=== PATIENT | male | born 1995 | race American Indian/Alaskan Native ===

== ENCOUNTER 2021-10-01 05:21 | Emergency (ER) | payer SELFPAY ==
[2021-10-01 06:30] LABS: Basophils % (Auto) 0.2 % (0.0-1.8); Eosinophils % (Auto) 0.2 % (0.0-4.3); Hemoglobin 15.2 gm/dl (11.8-15.2); Lymphocytes # (Auto) 2.1 K/mm3 (1.2-5.4); Lymphocytes % (Auto) 39.2 % (13.4-35.0); Mean Corpuscular HGB Conc 32 % (32-34); Mean Corpuscular Volume 86 fl (84-94); Monocytes # (Auto) 0.5 K/mm3 (0.0-0.8); Monocytes % (Auto) 10.1 % (0.0-7.3); Platelet Count 341 K/mm3 (140-440); Red Blood Count 5.49 M/mm3 (3.65-5.03); Red Cell Distribution Width 17.6 % (13.2-15.2)
[2021-10-01 06:44] LABS: BUN/Creatinine Ratio 9; Blood Urea Nitrogen 7 mg/dL (9-20); Hemolysis Index 5
[2021-10-01] MEDS ORDERED: ACETAMINOPHEN 500 MG TAB PO ONE (10:24)
[2021-10-01] MEDS ORDERED: SERTRALINE 50 MG TAB PO ONE (10:24)
--- NOTE | 2021-10-01 10:24 | Emergency Department Report ---
ED General Adult HPI - General Chief complaint: Upper Respiratory Infection Stated complaint: coughed up red Time Seen by Provider: 10/01/21 10:11 Source: patient, RN notes reviewed Mode of arrival: Ambulatory Limitations: No Limitations - History of Present Illness Initial comments: The patient was evaluated in the emergency department for symptoms described in the history of present illness. He/she was evaluated in the context of the global COVID-19 pandemic, which necessitated consideration that the patient might be at risk for infection with the virus that causes COVID-19. Institutional protocols and algorithms that pertain to the evaluation of patients at risk for COVID-19 are in a state of rapid change based on information released by regulatory bodies including the CDC and federal and state organizations. These policies and algorithms were followed during the patient's care in the emergency department. Please note that these policies, procedures and recommendations changed on a rapid basis. This patient is a pleasant and cooperative 25-year-old gentleman, who is a longtime smoker, presenting to the department today with a complaint of right lateral thoracic discomfort, coughing up red and dark. He has no hematemesis or bright red blood per rectum. His symptoms are now resolved. He denies travel, surgery, immobilization, DVT/PE risk factors. He is requesting his daily Zoloft which she gets at 9:00 in the morning, 50 mg. He denies urinary symptoms. -: hour(s) Location: right (Right lateral thorax) Radiation: non-radiation Consistency: now resolved Improves with: none Worsens with: none Associated Symptoms: denies other symptoms - Related Data Previous Rx's Medication Instructions Recorded Last Taken Type Albuterol Sulfate [Proair 90 mcg IH Q4HR PRN #2 aer.pow.ba 10/01/21 Unknown Rx Respiclick] Nicotine Polacrilex [Nicotine Gum] 4 mg BC PRN #1 pack 10/01/21 Unknown Rx Allergies Allergy/AdvReac Type Severity Reaction Status Date / Time bagel Allergy Hives Uncoded 10/01/21 05:31 ED Review of Systems ROS: Stated complaint: VOMITTING BLOOD Other details as noted in HPI Comment: All other systems reviewed and negative Respiratory: cough, other (Questionably coughing up blood) Gastrointestinal: denies: hematemesis, melena, hematochezia Genitourinary: denies: dysuria Musculoskeletal: back pain Psychiatric: anxiety ED Past Medical Hx - Past Medical History Previous Medical History?: Yes Hx Psychiatric Treatment: Yes (depression) - Surgical History Past Surgical History?: No - Social History Smoking Status: Current Every Day Smoker Substance Use Type: Alcohol - Medications Home Medications: Home Medications Medication Instructions Recorded Confirmed Last Taken Type Albuterol Sulfate [Proair 90 mcg IH Q4HR PRN #2 aer.pow.ba 10/01/21 Unknown Rx Respiclick] Nicotine Polacrilex [Nicotine Gum] 4 mg BC PRN #1 pack 10/01/21 Unknown Rx ED Physical Exam - General Limitations: No Limitations General appearance: alert, in no apparent distress - Head Head exam: Present: atraumatic, normocephalic - Eye Eye exam: Present: normal appearance, EOMI. Absent: nystagmus - ENT ENT exam: Present: normal exam, normal orophraynx, mucous membranes moist, normal external ear exam - Neck Neck exam: Present: normal inspection, full ROM. Absent: tenderness, meningismus - Respiratory Respiratory exam: Present: normal lung sounds bilaterally. Absent: respiratory distress, wheezes, rales, rhonchi, stridor, decreased breath sounds - Cardiovascular Cardiovascular Exam: Present: regular rate, normal rhythm, normal heart sounds. Absent: bradycardia, tachycardia, irregular rhythm, systolic murmur, diastolic murmur, rubs, gallop - GI/Abdominal GI/Abdominal exam: Present: soft. Absent: distended, tenderness, guarding, rebound, rigid, pulsatile mass - Rectal Rectal exam: Present: deferred - Extremities Exam Extremities exam: Present: normal inspection, full ROM, other (2+ pulses noted in the bilateral upper and lower extremities. There is no palpable cord. negative Homans sign. Muscular compartments are soft. The pelvis is stable.). Absent: pedal edema, calf tenderness - Back Exam Back exam: Present: normal inspection. Absent: tenderness, CVA tenderness (R), CVA tenderness (L), paraspinal tenderness, vertebral tenderness - Neurological Exam Neurological exam: Present: alert, oriented X3, normal gait, other (No facial droop. Tongue midline. Extraocular movements intact bilaterally. Facial sensation intact to light touch in V1, V2, V3 distribution bilaterally. 5 and a 5 strength in 4 extremities. Sensation intact to light touch in 4 extremities.). Absent: motor sensory deficit - Psychiatric Psychiatric exam: Present: normal affect, normal mood - Skin Skin exam: Present: warm, dry, intact, normal color. Absent: rash ED Course Vital Signs 10/01/21 10/01/21 05:28 11:03 Temperature 98.6 F Pulse Rate 84 74 Respiratory 18 16 Rate Blood Pressure 151/110 137/94 [Left] O2 Sat by Pulse 96 96 Oximetry - Pulse Oximetry Interpretation Digit-Finger Initial Pulse Oximetry Readin O2 Sat by Pulse Oximetry: 99 Actions Taken: none ED Medical Decision Making - Lab Data Result diagrams: 10/01/21 06:07 10/01/21 06:07 Vital Signs 10/01/21 10/01/21 05:28 11:03 Temperature 98.6 F Pulse Rate 84 74 Respiratory 18 16 Rate Blood Pressure 151/110 137/94 [Left] O2 Sat by Pulse 96 96 Oximetry Lab Results 10/01/21 10/01/21 Range/Units 06:07 06:07 WBC 5.2 (4.5-11.0) K/mm3 RBC 5.49 H (3.65-5.03) M/mm3 Hgb 15.2 (11.8-15.2) gm/dl Hct 47.0 H (35.5-45.6) % MCV 86 (84-94) fl MCH 28 (28-32) pg MCHC 32 (32-34) % RDW 17.6 H (13.2-15.2) % Plt Count 341 (140-440) K/mm3 Lymph % (Auto) 39.2 H (13.4-35.0) % [place] % (Auto) 10.1 H (0.0-7.3) % Eos % (Auto) 0.2 (0.0-4.3) % Baso % (Auto) 0.2 (0.0-1.8) % Lymph # (Auto) 2.1 (1.2-5.4) K/mm3 [place] # (Auto) 0.5 (0.0-0.8) K/mm3 Eos # (Auto) 0.0 (0.0-0.4) K/mm3 Baso # (Auto) 0.0 (0.0-0.1) K/mm3 Seg Neutrophils % 50.3 (40.0-70.0) % Seg Neutrophils # 2.6 (1.8-7.7) K/mm3 Sodium 140 (137-145) mmol/L Potassium 3.5 L (3.6-5.0) mmol/L Chloride 101.4 (98-107) mmol/L Carbon Dioxide 25 (22-30) mmol/L Anion Gap 17 mmol/L BUN 7 L (9-20) mg/dL Creatinine 0.8 (0.8-1.3) mg/dL Estimated GFR > 60 ml/min BUN/Creatinine Ratio 9 % Glucose 86 (75-100) mg/dL Calcium 9.0 (8.4-10.2) mg/dL - Medical Decision Making Differential diagnosis, including but not limited to: Pneumonia, bronchitis, bronchiectasis, pneumonitis, encounter for tobacco cessation Assessment and plan: 25-year-old gentleman, who is afebrile, with reassuring vital signs, who is not currently tachycardic, tachypneic or hypoxic, who denies DVT and pulmonary embolism risk factors, who is low risk by Wells criteria for pulmonary embolism, who is PERC negative, presents to the department today with a complaint of possibly coughing up red or blood. His physical examination is benign or unremarkable. His chest x-ray is benign and unremarkable. Laboratory studies are unremarkable and nonactionable. Saturating at 99% on room air. Counseled to discontinue tobacco consumption. Observed in this department for hours without clinical decompensation. He does not appear to have an emergent medical condition present at this time. He may be discharged. Critical care attestation.: If time is entered above; I have spent that time in minutes in the direct care of this critically ill patient, excluding procedure time. ED Disposition Clinical Impression: Bronchitis, Encounter for tobacco use cessation counseling Disposition: 01 HOME / SELF CARE / HOMELESS Is pt being admited?: No Does the pt Need Aspirin: No Condition: Good Instructions: Chronic Bronchitis (ED), Steps to Quit Smoking Additional Instructions: We recommend that the patient discontinue tobacco consumption. Discontinuation of tobacco consumption will decrease risk for cancer, heart attack, and stroke. Patient may take [id number] Tylenol or ibuprofen as needed for physical pain. May take [id number] allergy medicine, such as Claritin or Zyrtec, if experiencing nasal congestion, stuffiness, itchiness, or symptomatic seasonal allergies. May take the prescribed albuterol as needed for cough, wheezing and shortness of breath. Patient may take the nicotine gum/supplement as needed to assist with tobacco cessation. Recommend follow-up with a primary care doctor within the next 6 weeks. Please return to the emergency room right away with new pain, worsened pain, migration of pain, projectile vomiting, change in mental status, confusion, inability tolerate liquid feeds, new, worsened or different symptoms not present on the initial emergency room evaluation Referrals: [facility] [Provider Group] - as needed Forms: Accompanied Note
[2021-10-01 11:03] VITALS: BP 137/94
--- NOTE | 2021-10-01 11:05 | XRay Report ---
CHEST 2 VIEWS INDICATION / CLINICAL INFORMATION: right sided thorax pain, hemoptysis. COMPARISON: None available. FINDINGS: SUPPORT DEVICES: None. HEART / MEDIASTINUM: No significant abnormality. LUNGS / PLEURA: No significant pulmonary or pleural abnormality. No pneumothorax. ADDITIONAL FINDINGS: No significant additional findings. IMPRESSION: 1. No acute findings. Signer Name: Kenn Smith DO Signed: 10/01/2021 11:01 AM Workstation Name: [id number]
== END 2021-10-01 11:40 | disposition home or self-care (01) ==
LOC: ED 05:21
DX: J20.9 Acute bronchitis, unspecified (principal); Z71.6 Tobacco abuse counseling; F17.200 Nicotine dependence, unspecified, uncomplicated
CPT/HCPCS: 36415; 71046; 80048; 85025; 99283

== ENCOUNTER 2021-10-19 23:04 | Inpatient (IN) | payer SELFPAY ==
[2021-10-19] MEDS ORDERED: SODIUM CHLORIDE 0.9% 1000 ML 1,000 ML IV ONE ×2 (23:24→23:36)
[2021-10-19] MEDS ORDERED: fentaNYL 100 MCG/2 ML INJ IV ONE (23:24)
[2021-10-19] MEDS ORDERED: TETANUS,DIPHTHERIA TOXOID ADULT 0.5 ML INJ IM ONE (23:27)
[2021-10-19] MEDS ORDERED: TETRACAINE 0.5% OPHTH SOLN 4ML OU PRN (23:27)
[2021-10-19] MEDS ORDERED: charcoal activated SOLUTION 25 GM/120 ML PO ONE (23:34)
--- NOTE | 2021-10-19 23:43 | Emergency Department Report ---
<ROSANGELA SHERMAN - Last Filed: 10/19/21 23:37> ED General Adult HPI - General Stated complaint: POSS OD TYLENOL PUI?: No Time Seen by Provider: 10/19/21 23:29 Source: patient, EMS - History of Present Illness Initial comments: THIS IS A PLEASANTLY INTOXICATED 26 YEAR OLD MALE BROUGHT IN BY EMS WITH CONCERNS OF POSSIBLE TYLENOL OVERDOSE WHICH PER EMS, HE DRANK ABOUT 12,000 MG OF TYLENOL LIQUID FORM. PATIENT ALSO STATES HE HAD ALCOHOL TONIGHT BUT WON'T LET ME WHAT HE HAD. PATIENT STATES IN THE PAST HE HAS ATTEMPTED TO SLICE HIS WRIST AND TODAY THAT HE DRANK ALCOHOL IS FOR SUICIDAL ATTEMPT. AT THE TIME OF MY EVALUATION, PATIENT IS UP AND WALKING AROUND IN [facility] AND DENIES ANY DISCOMFORT. DENIES HOMICIDAL IDEATION. DENIES HALLUCINATION. Patient denies fever chill night sweat dizziness blurred vision lightheadedness headache tinnitus ear pain runny nose sore throat loss of taste loss of smell chest pain palpitation short of breath cough abdominal pain nausea vomiting diarrhea constipation joint pain muscle pain new rash heat or cold intolerance - Related Data Previous Rx's Medication Instructions Recorded Last Taken Type Albuterol Sulfate [Proair 90 mcg IH Q4HR PRN #2 aer.pow.ba 10/01/21 Unknown Rx Respiclick] Nicotine Polacrilex [Nicotine Gum] 4 mg BC PRN #1 pack 10/01/21 Unknown Rx Allergies Allergy/AdvReac Type Severity Reaction Status Date / Time bagel Allergy Hives Uncoded 10/01/21 05:31 ED Review of Systems Constitutional: no symptoms reported Eyes: as per HPI ENT: as per HPI Respiratory: no symptoms reported Cardiovascular: as per HPI Endocrine: no symptoms reported Gastrointestinal: as per HPI Genitourinary: as per HPI Musculoskeletal: as per HPI Skin: as per HPI Neurological: as per HPI Psychiatric: suicidal thoughts (AND ATTEMPT TO DRINK TYLENOL). denies: anxiety, depression, auditory hallucinations, visual hallucinations, homicidal thoughts Hematological/Lymphatic: as per HPI ED Past Medical Hx - Past Medical History Hx Psychiatric Treatment: Yes (depression) - Social History Smoking Status: Current Every Day Smoker Substance Use Type: Alcohol - Medications Home Medications: Home Medications Medication Instructions Recorded Confirmed Last Taken Type Albuterol Sulfate [Proair 90 mcg IH Q4HR PRN #2 aer.pow.ba 10/01/21 Unknown Rx Respiclick] Nicotine Polacrilex [Nicotine Gum] 4 mg BC PRN #1 pack 10/01/21 Unknown Rx ED Physical Exam - General General appearance: alert, other (PLEASANTLY INTOXICATED) - Head Head exam: Present: atraumatic, normocephalic, normal inspection - Eye Eye exam: Present: normal appearance, PERRL, EOMI Pupils: Present: normal accommodation - ENT ENT exam: Present: normal exam, normal orophraynx, mucous membranes moist - Neck Neck exam: Present: normal inspection, full ROM - Respiratory Respiratory exam: Present: normal lung sounds bilaterally - Cardiovascular Cardiovascular Exam: Present: regular rate, normal rhythm - GI/Abdominal GI/Abdominal exam: Present: soft - Extremities Exam Extremities exam: Present: normal inspection - Back Exam Back exam: Present: normal inspection, full ROM - Neurological Exam Neurological exam: Present: alert, altered, oriented X3 (PLEASANTLY INTOXICATED AND JOKING AROUND ABOUT KILING HIMSELF.) - Psychiatric Psychiatric exam: Present: suicidal ideation. Absent: homicidal ideation ED Course - Reevaluation(s) Reevaluation #1: 10/19/21 23:44 I WILL SIGN OUT MY PATIENT CARE TO MY COLLEAGUE, DR. GALLARDO WHO WILL FOLLOW UP ON THE ACETAMINOPHEN LEVEL, ETC. ED Disposition Clinical Impression: Overdose, Suicide attempt, Tylenol overdose Disposition: ADMITTED INPATIENT Condition: Stable <ROSA GALLARDO - Last Filed: 10/20/21 06:15> ED Medical Decision Making - Lab Data Result diagrams: 10/19/21 23:54 10/19/21 23:54 ED Disposition Is pt being admited?: Yes Does the pt Need Aspirin: No <CINTHYA PANTOJA - Last Filed: 10/20/21 14:23> ED Review of Systems ROS: Stated complaint: POSS OD TYLENOL Other details as noted in HPI ED Course Vital Signs 10/19/21 10/19/21 10/19/21 23:39 23:50 23:58 Pulse Rate 96 H Respiratory 18 Rate Blood Pressure 137/98 Blood Pressure [Left] O2 Sat by Pulse 98 98 100 Oximetry 10/20/21 10/20/21 10/20/21 00:01 00:15 00:31 Pulse Rate 76 81 Respiratory 16 18 Rate Blood Pressure 139/97 122/88 120/84 Blood Pressure [Left] O2 Sat by Pulse 96 97 96 Oximetry 10/20/21 10/20/21 10/20/21 00:45 01:01 01:15 Pulse Rate 97 H 70 74 Respiratory 16 18 15 Rate Blood Pressure 119/78 127/87 127/87 Blood Pressure [Left] O2 Sat by Pulse 97 96 97 Oximetry 10/20/21 10/20/21 10/20/21 01:31 01:45 02:01 Pulse Rate 73 77 86 Respiratory 17 18 19 Rate Blood Pressure 127/87 127/87 108/58 Blood Pressure [Left] O2 Sat by Pulse 96 96 96 Oximetry 10/20/21 10/20/21 10/20/21 02:15 02:31 02:45 Pulse Rate 85 86 89 Respiratory 17 19 19 Rate Blood Pressure 108/58 108/58 108/58 Blood Pressure [Left] O2 Sat by Pulse 96 95 95 Oximetry 10/20/21 10/20/21 10/20/21 03:01 03:15 03:31 Pulse Rate 79 78 75 Respiratory 17 18 17 Rate Blood Pressure 101/58 101/58 101/58 Blood Pressure [Left] O2 Sat by Pulse 96 96 96 Oximetry 10/20/21 10/20/21 10/20/21 03:45 04:01 04:15 Pulse Rate 73 73 66 Respiratory 17 18 13 Rate Blood Pressure 101/58 97/60 97/60 Blood Pressure [Left] O2 Sat by Pulse 96 96 97 Oximetry 10/20/21 10/20/21 10/20/21 04:31 04:45 05:01 Pulse Rate 65 75 62 Respiratory 13 13 17 Rate Blood Pressure 97/60 141/91 Blood Pressure [Left] O2 Sat by Pulse 98 98 99 Oximetry 10/20/21 10/20/21 10/20/21 05:15 05:31 05:45 Pulse Rate 65 63 63 Respiratory 16 21 23 Rate Blood Pressure 141/91 141/91 141/91 Blood Pressure [Left] O2 Sat by Pulse 99 99 99 Oximetry 10/20/21 10/20/21 10/20/21 06:01 06:15 06:31 Pulse Rate 68 67 91 H Respiratory 20 15 17 Rate Blood Pressure 120/91 120/91 120/91 Blood Pressure [Left] O2 Sat by Pulse 98 99 98 Oximetry 10/20/21 10/20/21 10/20/21 06:45 07:01 07:15 Pulse Rate 131 H 110 H 100 H Respiratory 29 H 17 16 Rate Blood Pressure 120/91 156/127 156/127 Blood Pressure [Left] O2 Sat by Pulse 99 98 98 Oximetry 10/20/21 10/20/21 10/20/21 07:31 08:00 08:15 Pulse Rate 102 H 75 84 Respiratory 15 17 12 Rate Blood Pressure 156/127 156/127 Blood Pressure 132/97 [Left] O2 Sat by Pulse 96 99 Oximetry 10/20/21 10/20/21 10/20/21 08:31 08:45 09:01 Pulse Rate 98 H 77 71 Respiratory 17 22 26 H Rate Blood Pressure 156/127 147/115 132/97 Blood Pressure [Left] O2 Sat by Pulse 96 97 98 Oximetry 10/20/21 10/20/21 10/20/21 09:15 09:22 09:31 Pulse Rate 74 68 78 Respiratory 22 17 20 Rate Blood Pressure 132/97 136/95 Blood Pressure 147/115 [Left] O2 Sat by Pulse 98 99 96 Oximetry 10/20/21 10/20/21 10/20/21 09:45 10:01 10:15 Pulse Rate 75 72 72 Respiratory 20 22 18 Rate Blood Pressure 136/95 136/95 136/95 Blood Pressure [Left] O2 Sat by Pulse 99 97 98 Oximetry 10/20/21 10/20/21 10/20/21 10:31 11:01 11:45 Pulse Rate 75 73 80 Respiratory 19 15 18 Rate Blood Pressure 134/93 135/98 135/98 Blood Pressure [Left] O2 Sat by Pulse 96 100 96 Oximetry 10/20/21 12:01 Pulse Rate 81 Respiratory 22 Rate Blood Pressure 134/95 Blood Pressure [Left] O2 Sat by Pulse 97 Oximetry ED Medical Decision Making - Lab Data Result diagrams: 10/19/21 23:54 10/19/21 23:54 - Medical Decision Making Case discussed with hospitalist Dr. Myers admission orders placed Critical care attestation.: If time is entered above; I have spent that time in minutes in the direct care of this critically ill patient, excluding procedure time. ED Disposition Is pt being admited?: Yes Does the pt Need Aspirin: No
[2021-10-20 00:17] LABS: Bilirubin,Urine NEG (Negative); Blood,Urine SM (Negative); Color,Urine Yellow (Yellow); Protein,Urine <15 mg/dL mg/dL (Negative)
[2021-10-20 00:22] LABS: Basophils % (Auto) 0.3 % (0.0-1.8); Eosinophils % (Auto) 0.4 % (0.0-4.3); Hematocrit 43.5 % (35.5-45.6); Hemoglobin 14.3 gm/dl (11.8-15.2); Lymphocytes # (Auto) 1.1 K/mm3 (1.2-5.4); Mean Corpuscular HGB Conc 33 % (32-34); Mean Corpuscular Volume 87 fl (84-94); Monocytes # (Auto) 0.7 K/mm3 (0.0-0.8); Monocytes % (Auto) 9.7 % (0.0-7.3); Platelet Count 290 K/mm3 (140-440); Red Blood Count 4.99 M/mm3 (3.65-5.03); Red Cell Distribution Width 17.5 % (13.2-15.2)
[2021-10-20 00:27] LABS: Amphetamine Screen,Urine PRESUMPTIVE NEGATIVE; Benzodiazepines Screen,Urine PRESUMPTIVE NEGATIVE; Cannabinoid Screen,Urine PRESUMPTIVE NEGATIVE; Cocaine Screen,Urine PRESUMPTIVE NEGATIVE; Methadone Screen,Urine PRESUMPTIVE NEGATIVE; Opiate Screen,Urine PRESUMPTIVE NEGATIVE
[2021-10-20 00:32] LABS: Alanine Aminotransferase 59 units/L (7-56); Albumin 4.3 g/dL (3.9-5); Blood Urea Nitrogen 6 mg/dL (9-20); Calcium 8.8 mg/dL (8.4-10.2); Hemolysis Index 13
[2021-10-20 00:33] LABS: INR 0.9 (0.87-1.13)
[2021-10-20 00:36] LABS: BUN/Creatinine Ratio 9
[2021-10-20] MEDS ORDERED: NICOTINE 21 MG/24 HR PATCH TD ONE (00:54)
[2021-10-20] MEDS ORDERED: ACETADOTE IV ONE ×3 (05:00→10:00)
[2021-10-20] MEDS ORDERED: WATER IV ONE ×3 (05:00→10:00)
[2021-10-20] MEDS ORDERED: DEXTROSE 5% IV ONE ×3 (05:00→10:00)
[2021-10-20] MEDS ORDERED: ONDANSETRON 4 MG/2 ML INJ IV ONE (06:54)
[2021-10-20] MEDS ORDERED: ONDANSETRON 4 MG/2 ML INJ ONE (06:54)
[2021-10-20] MEDS ORDERED: ACETAMINOPHEN 325 MG TAB PO PRN (07:39)
[2021-10-20] MEDS ORDERED: ONDANSETRON 4 MG/2 ML INJ IV PRN ×3 (07:39→11:30)
[2021-10-20] MEDS ORDERED: MORPHINE 2 MG/1 ML INJ IV PRN ×3 (07:40→12:00)
--- NOTE | 2021-10-20 10:58 | History and Physical Report ---
History of Present Illness Date of examination: 10/20/21 Date of admission: 10/20/21 07:39 Chief complaint: Tylenol overdose History of present illness: 26-year-old male who presented through the emergency department with chief complaint of possible Tylenol overdose. Per EMS, patient reportedly drank approximately 12,000 mg of Tylenol liquid form as well as alcohol last night TUFTER. Patient reportedly had a suicide attempt in the past with cutting his wrists. Patient would not deny or confirm that he had a suicide attempt. Patient would also not give me any history of any prior suicidal attempts. Patient was essentially uncooperative with the interview and had a flat affect. Patient reports that he does have a history of depression. Patient denies any fever or chills. No cough or cold-like symptoms. Past History Past Medical History: other (Depression, previous suicide attempt) Past Surgical History: No surgical history Social history: no significant social history Family history: no significant family history Medications and Allergies Allergies Allergy/AdvReac Type Severity Reaction Status Date / Time bagel Allergy Hives Uncoded 10/01/21 05:31 Home Medications Medication Instructions Recorded Confirmed Last Taken Type Albuterol Sulfate [Proair 90 mcg IH Q4HR PRN #2 aer.pow.ba 10/01/21 Unknown Rx Respiclick] Nicotine Polacrilex [Nicotine Gum] 4 mg BC PRN #1 pack 10/01/21 Unknown Rx Active Meds: Active Medications Acetylcysteine 8,000 mg/ (Dextrose) 1,040 mls @ 62.5 mls/hr IV ONCE ONE Stop: 10/21/21 02:38 Morphine Sulfate (Morphine 2 Mg/1 Ml Inj) 2 mg IV Q4H PRN PRN Reason: Pain, Moderate (4-6) Ondansetron HCl (Ondansetron 4 Mg/2 Ml Inj) 4 mg IV Q8H PRN PRN Reason: Nausea And Vomiting Sodium Chloride (Sodium Chloride 0.9% 10 Ml Flush Syringe) 10 ml IV BID SOSA Sodium Chloride (Sodium Chloride 0.9% 10 Ml Flush Syringe) 10 ml IV PRN PRN PRN Reason: LINE FLUSH Review of Systems All systems: negative Exam - Constitutional Vitals: Temp Pulse Resp BP Pulse Ox 68 17 147/115 99 10/20/21 09:22 10/20/21 09:22 10/20/21 09:22 10/20/21 09:22 General appearance: Present: no acute distress, well-nourished - EENT Eyes: Present: PERRL ENT: hearing intact, clear oral mucosa - Neck Neck: Present: supple, normal ROM - Respiratory Respiratory effort: normal Respiratory: bilateral: CTA - Cardiovascular Heart Sounds: Present: S1 & S2. Absent: rub, click - Extremities Extremities: pulses symmetrical, No edema Peripheral Pulses: within normal limits - Abdominal General gastrointestinal: Present: soft, non-tender, non-distended, normal bowel sounds Male genitourinary: Present: normal - Integumentary Integumentary: Present: clear, warm, dry - Musculoskeletal Musculoskeletal: gait normal, strength equal bilaterally - Psychiatric Psychiatric: appropriate mood/affect, intact judgment & insight - Neurologic Neurologic: CNII-XII intact, moves all extremities Results - Labs CBC & Chem 7: 10/19/21 23:54 10/19/21 23:54 Labs: Laboratory Last Values WBC 6.9 K/mm3 (4.5-11.0) 10/19/21 23:54 RBC 4.99 M/mm3 (3.65-5.03) 10/19/21 23:54 Hgb 14.3 gm/dl (11.8-15.2) 10/19/21 23:54 Hct 43.5 % (35.5-45.6) 10/19/21 23:54 MCV 87 fl (84-94) 10/19/21 23:54 MCH 29 pg (28-32) 10/19/21 23:54 MCHC 33 % (32-34) 10/19/21 23:54 RDW 17.5 % (13.2-15.2) H 10/19/21 23:54 Plt Count 290 K/mm3 (140-440) 10/19/21 23:54 Lymph % (Auto) 16.0 % (13.4-35.0) 10/19/21 23:54 [place] % (Auto) 9.7 % (0.0-7.3) H 10/19/21 23:54 Eos % (Auto) 0.4 % (0.0-4.3) 10/19/21 23:54 Baso % (Auto) 0.3 % (0.0-1.8) 10/19/21 23:54 Lymph # (Auto) 1.1 K/mm3 (1.2-5.4) L 10/19/21 23:54 [place] # (Auto) 0.7 K/mm3 (0.0-0.8) 10/19/21 23:54 Eos # (Auto) 0.0 K/mm3 (0.0-0.4) 10/19/21 23:54 Baso # (Auto) 0.0 K/mm3 (0.0-0.1) 10/19/21 23:54 Seg Neutrophils % 73.6 % (40.0-70.0) H 10/19/21 23:54 Seg Neutrophils # 5.1 K/mm3 (1.8-7.7) 10/19/21 23:54 PT 13.1 Sec. (12.2-14.9) 10/19/21 23:54 INR 0.90 (0.87-1.13) 10/19/21 23:54 APTT 26.0 Sec. (24.2-36.6) 10/19/21 23:54 Sodium 141 mmol/L (137-145) 10/19/21 23:54 Potassium 3.8 mmol/L (3.6-5.0) 10/19/21 23:54 Chloride 105.0 mmol/L (98-107) 10/19/21 23:54 Carbon Dioxide 24 mmol/L (22-30) 10/19/21 23:54 Anion Gap 16 mmol/L 10/19/21 23:54 BUN 6 mg/dL (9-20) L 10/19/21 23:54 Creatinine 0.7 mg/dL (0.8-1.3) L 10/19/21 23:54 Estimated GFR > 60 ml/min 10/19/21 23:54 BUN/Creatinine Ratio 9 % 10/19/21 23:54 Glucose 73 mg/dL (75-100) L 10/19/21 23:54 Calcium 8.8 mg/dL (8.4-10.2) 10/19/21 23:54 Magnesium 2.20 mg/dL (1.7-2.3) 10/19/21 23:54 Total Bilirubin 0.50 mg/dL (0.1-1.2) 10/19/21 23:54 AST 74 units/L (5-40) H 10/19/21 23:54 ALT 59 units/L (7-56) H 10/19/21 23:54 Alkaline Phosphatase 115 units/L (35-129) 10/19/21 23:54 Total Protein 7.8 g/dL (6.3-8.2) 10/19/21 23:54 Albumin 4.3 g/dL (3.9-5) 10/19/21 23:54 Albumin/Globulin Ratio 1.2 % 10/19/21 23:54 Urine Color Yellow (Yellow) 10/20/21 00:07 Urine Turbidity Clear (Clear) 10/20/21 00:07 Urine pH 7.0 (5.0-7.0) 10/20/21 00:07 Ur Specific [place] 1.004 (1.003-1.030) 10/20/21 00:07 Urine Protein <15 mg/dl mg/dL (Negative) 10/20/21 00:07 Urine Glucose (UA) Neg mg/dL (Negative) 10/20/21 00:07 Urine Ketones Neg mg/dL (Negative) 10/20/21 00:07 Urine Blood Sm (Negative) 10/20/21 00:07 Urine Nitrite Neg (Negative) 10/20/21 00:07 Urine Bilirubin Neg (Negative) 10/20/21 00:07 Urine Urobilinogen 2.0 mg/dL (<2.0) 10/20/21 00:07 Ur Leukocyte Esterase Neg (Negative) 10/20/21 00:07 Urine WBC (Auto) 6.0 /HPF (0.0-6.0) 10/20/21 00:07 Urine RBC (Auto) 1.0 /HPF (0.0-6.0) 10/20/21 00:07 Salicylates < 0.3 mg/dL (2.8-20.0) L 10/19/21 23:54 Urine Opiates Screen Presumptive negative 10/19/21 23:58 Urine Methadone Screen Presumptive negative 10/19/21 23:58 Acetaminophen 11.1 ug/mL (10.0-30.0) 10/20/21 04:26 Ur Barbiturates Screen Presumptive negative 10/19/21 23:58 Ur Phencyclidine Scrn Presumptive negative 10/19/21 23:58 Ur Amphetamines Screen Presumptive negative 10/19/21 23:58 U Benzodiazepines Scrn Presumptive negative 10/19/21 23:58 Urine Cocaine Screen Presumptive negative 10/19/21 23:58 U Marijuana (THC) Screen Presumptive negative 10/19/21 23:58 Drugs of Abuse Note Disclamer 10/19/21 23:58 Assessment and Plan Assessment and plan: Tylenol overdose Suicide attempt. Major depressive disorder. 10/20/2021. Patient was started on Acetadote in the emergency department which we will continue per protocol and per GI/poison control recommendations. We will continue to monitor LFTs. Initial acetaminophen level was 36 and is now 11.1. We will consult GI for further evaluation. Also, await psychiatric evaluation. Continue 1013 initiated in the ED.
[2021-10-20] MEDS ORDERED: IBUPROFEN 600 MG TAB PO PRN ×2 (11:09→11:30)
[2021-10-20] MEDS ORDERED: MORPHINE 4 MG/1 ML INJ IV PRN (11:09)
--- NOTE | 2021-10-20 11:19 | Consultation ---
History of Present Illness - Reason for Consult Consult date: 10/20/21 Reason for consult: intentional overdose - Chief Complaint Chief complaint: Tylenol overdose - History of Present Psychiatric Illness HPI: THIS IS A PLEASANTLY INTOXICATED 26 YEAR OLD MALE BROUGHT IN BY EMS WITH CONCERNS OF POSSIBLE TYLENOL OVERDOSE WHICH PER EMS, HE DRANK ABOUT 12,000 MG OF TYLENOL LIQUID FORM. PATIENT ALSO STATES HE HAD ALCOHOL TONIGHT BUT WON'T LET ME WHAT HE HAD. PATIENT STATES IN THE PAST HE HAS ATTEMPTED TO SLICE HIS WRIST AND TODAY THAT HE DRANK ALCOHOL IS FOR SUICIDAL ATTEMPT. AT THE TIME OF MY EVALUATION, PATIENT IS UP AND WALKING AROUND IN ER [facility] AND DENIES ANY DISCOMFORT. DENIES HOMICIDAL IDEATION. DENIES HALLUCINATION. The patient was seen today. He presented to the ER by EMS for tylenol overdose. During my evaluation, the patient says he he took "18 tylenol." He says he's been depressed. When asking him what makes him depressed, the patient says "I don't know." He then says he has no social support and not really close with his family. He says he "drinks a lot." The patient says he drinks maybe a case of beer a day. He denies any illicit drug use or nicotine. When asking about any h allucinations, the patient says "I don't know if I'm dreaming or what's real. It's just random stuff I can't explain." He denies to me ever attempting suicide outside of this, but documented that upon admission he stated he attempted to slice his wrist. He says he takes Zoloft for depression. PAST PSYCHIATRIC HISTORY Diagnoses: Depression Suicide attempts or Self-harm behavior: Denies, but documented he attempted to slice his wrist Prior psychiatric hospitalizations: Yes Substance Abuse history: Alcohol Previous psychiatric medications tried: Zoloft Outpatient treatment: Yes PAST MEDICAL HISTORY: none reported Family Psychiatric History: None reported or documented SOCIAL HISTORY Marital Status: Single Living Arrangements: Lives with family Employment Status: Unemployed Access to guns/weapons: Denies Education: History of Abuse: none reported Legal History: none reported REVIEW OF SYSTEMS Constitutional: Negative for weight loss ENT: Negative for stridor Respiratory: Negative for cough or hemoptysis All other systems reviewed and are negative MENTAL STATUS EXAMINATION General Appearance and Behavior: Age appropriate, good hygiene, wearing appropriate clothes, fair eye contact, cooperative polite with questioning. Cooperation: Participating/engaged, guarded Psychomotor Behavior: unremarkable and within normal limits Mood: Depressed Affect and affective range: congruent with mood Thought Process: Goal directed Thought Content: delusions Speech: Normal volume, Regular rate and rhythm, Suicidal Ideation: Yes Homicidal Ideation: Denies Hallucinations: Denies Delusions: yes Impulse Control: Poor Insight and Judgment: Limited insight and judgment, Memory: Normal, Attention: Normal, Orientation: Alert, oriented, Assessment and Plan (1) Major Depressive Disorder (2) Alcohol Dependence Treatment 1013 Zoloft 25mg po daily Abilify 5mg po daily Melatonin 5mg po qhs prn insomnia Sitter: Per primary Medical: Per primary Disposition: recommend acute inpatient psychiatric treatment. Will follow. Thanks Case staffed with Dr. Rangel Medications and Allergies Allergies Allergy/AdvReac Type Severity Reaction Status Date / Time bagel Allergy Hives Uncoded 10/01/21 05:31 Home Medications Medication Instructions Recorded Confirmed Last Taken Type Albuterol Sulfate [Proair 90 mcg IH Q4HR PRN #2 [email or web address] 10/01/21 Unknown Rx Respiclick] Nicotine Polacrilex [Nicotine Gum] 4 mg BC PRN #1 pack 10/01/21 Unknown Rx Active Meds: Active Medications Heparin Sodium (Porcine) (Heparin 5,000 Unit/1 Ml Vial) 5,000 unit SUB-Q Q8HR SOSA Acetylcysteine 8,000 mg/ (Dextrose) 1,040 mls @ 62.5 mls/hr IV ONCE ONE Stop: 10/21/21 02:38 Ibuprofen (Ibuprofen 600 Mg Tab) 600 mg PO Q6H PRN PRN Reason: Pain, Mild (1-3) Morphine Sulfate (Morphine 2 Mg/1 Ml Inj) 1 mg IV Q4H PRN PRN Reason: Pain, Moderate (4-6) Morphine Sulfate (Morphine 2 Mg/1 Ml Inj) 2 mg IV Q4H PRN PRN Reason: Pain , Severe (7-10) Ondansetron HCl (Ondansetron 4 Mg/2 Ml Inj) 4 mg IV Q8H PRN PRN Reason: Nausea And Vomiting Sodium Chloride (Sodium Chloride 0.9% 10 Ml Flush Syringe) 10 ml IV BID SOSA Sodium Chloride (Sodium Chloride 0.9% 10 Ml Flush Syringe) 10 ml IV PRN PRN PRN Reason: LINE FLUSH Mental Status Exam - Vital signs Last Vital Signs Temp Pulse 68 10/20/21 09:22 Resp 17 10/20/21 09:22 BP 147/115 10/20/21 09:22 Pulse Ox 99 10/20/21 09:22 Results Result Diagrams: 10/19/21 23:54 10/19/21 23:54 Abnormal lab results 10/19/21 10/19/21 10/19/21 Range/Units 23:54 23:54 23:54 RDW 17.5 H (13.2-15.2) % Blair % (Auto) 9.7 H (0.0-7.3) % Lymph # (Auto) 1.1 L (1.2-5.4) K/mm3 Seg Neutrophils % 73.6 H (40.0-70.0) % BUN 6 L (9-20) mg/dL Creatinine 0.7 L (0.8-1.3) mg/dL Glucose 73 L (75-100) mg/dL AST 74 H (5-40) units/L ALT 59 H (7-56) units/L Salicylates < 0.3 L (2.8-20.0) mg/dL Acetaminophen (10.0-30.0) ug/mL 10/19/21 Range/Units 23:54 RDW (13.2-15.2) % Blair % (Auto) (0.0-7.3) % Lymph # (Auto) (1.2-5.4) K/mm3 Seg Neutrophils % (40.0-70.0) % BUN (9-20) mg/dL Creatinine (0.8-1.3) mg/dL Glucose (75-100) mg/dL AST (5-40) units/L ALT (7-56) units/L Salicylates (2.8-20.0) mg/dL Acetaminophen 36.0 H (10.0-30.0) ug/mL All other labs normal.
[2021-10-20] MEDS: SERTRALINE 25 MG TAB PO SCH (13:00)
[2021-10-20] MEDS: ARIPiprazole 5 MG TAB PO SCH (13:00)
[2021-10-20] MEDS: HEPARIN 5,000 UNIT/1 ML VIAL SUB-Q SCH (19:11)
--- NOTE | 2021-10-20 19:54 | Consultation ---
DATE OF CONSULTATION: 10/20/2021 INDICATION: Increased liver function test. HISTORY: The patient is a 26-year-old white male who has been seen for increased liver function test. The patient reportedly takes approximately 79911 mg of Tylenol liquid form for possible suicide attempt. The patient denies history of liver disease prior. Denies a known history of increased liver function test. The patient denies risk factors for chronic liver disease including IV drug abuse, blood transfusions or family history of liver disease. GI is consulted to aid in management given possible Tylenol overdose. No other specific complaints. PAST MEDICAL HISTORY: Depression. MEDICATIONS: Reviewed and updated in chart. ALLERGIES: No known drug allergies. SOCIAL HISTORY: Social alcohol. Denies IV drug abuse. FAMILY HISTORY: Negative for colon cancer, IBD or liver disease REVIEW OF SYSTEMS: GENERAL: Reports some weakness. HEENT: No visual complaints or tinnitus. PULMONARY: Reports some shortness of breath, has chest pain. GASTROINTESTINAL: No complaints. All points of 13-point review of system otherwise negative. PHYSICAL EXAMINATION: VITAL SIGNS: Temperature of 98.7, pulse 77, respirations 20, blood pressure 129/90. GENERAL: Fairly nourished with no acute distress. HEENT: Pupils equal, round and reactive. PULMONARY: Clear to auscultation bilaterally. CARDIOVASCULAR: Regular rate and rhythm. Normal S1, S2. ABDOMEN: Positive bowel sounds, soft. SKIN: No obvious rashes. LABORATORY DATA: Pertinent for white count of 6.9, hemoglobin and hematocrit 14.3 and 43.5, platelet count of 290. Coags within normal limits. Chem-7 within normal limits. AST and ALT of 74 and 59. ASSESSMENT: A 26-year-old male presents with increased liver function test after ingestion of large amount of acetaminophen in what is a possible apparent suicide attempt. The patient reports now that he is doing well. He denies a known history of liver disease. His liver tests are only mildly elevated and no labs suggestive of impending liver failure. Management is noted below. PLAN: 1. Continue per protocol. 2. Follow LFTs. 3. Basic liver workup including acute hepatitis panel. 4. Consider liver ultrasound based on progress. 5. Avoid hepatotoxic drugs. 6. Suicidal or homicidal ideation per Primary Team and Psychiatry. 7. We will follow with further recommendation based on progress. TID: [id number] RECEIPT: [id number] IVETH/DERICK/DENIA/SHERYL
[2021-10-20] MEDS ORDERED: MELATONIN 5 MG TAB PO PRN (22:00)
[2021-10-21 00:35] LABS: Albumin 3.9 g/dL (3.9-5); Bilirubin,Direct 0.4 mg/dL (0-0.2)
[2021-10-21] MEDS: HEPARIN 5,000 UNIT/1 ML VIAL SUB-Q SCH ×4 (00:48→23:16)
[2021-10-21 04:19] LABS: Basophils # (Auto) 0.1 K/mm3 (0.0-0.1); Basophils % (Auto) 2.8 % (0.0-1.8); Eosinophils % (Auto) 0.8 % (0.0-4.3); Hematocrit 41.3 % (35.5-45.6); Hemoglobin 13.2 gm/dl (11.8-15.2); Lymphocytes # (Auto) 0.5 K/mm3 (1.2-5.4); Mean Corpuscular HGB Conc 32 % (32-34); Mean Corpuscular Volume 88 fl (84-94); Monocytes # (Auto) 0.4 K/mm3 (0.0-0.8); Monocytes % (Auto) 9.6 % (0.0-7.3); Platelet Count 199 K/mm3 (140-440); Red Blood Count 4.69 M/mm3 (3.65-5.03); Red Cell Distribution Width 17.1 % (13.2-15.2)
[2021-10-21 04:32] LABS: Alanine Aminotransferase 40 units/L (7-56); Albumin 3.9 g/dL (3.9-5); Bilirubin,Direct 0.4 mg/dL (0-0.2); Blood Urea Nitrogen 2 mg/dL (9-20); Calcium 9.3 mg/dL (8.4-10.2); Hemolysis Index 7
[2021-10-21 04:38] LABS: INR 1.03 (0.87-1.13)
[2021-10-21 04:41] LABS: BUN/Creatinine Ratio 3
[2021-10-21] MEDS ORDERED: DEXTROSE 5% IV SCH (05:00)
[2021-10-21] MEDS ORDERED: ACETADOTE IV SCH (05:00)
[2021-10-21] MEDS ORDERED: WATER IV SCH (05:00)
[2021-10-21] MEDS: ARIPiprazole 5 MG TAB PO SCH (09:05)
[2021-10-21] MEDS: SERTRALINE 25 MG TAB PO SCH (09:06)
--- NOTE | 2021-10-21 10:51 | Progress Note ---
Assessment and Plan Assessment and plan: Tylenol overdose Suicide attempt. Major depressive disorder. 10/20/2021. Patient was started on Acetadote in the emergency department which we will continue per protocol and per GI/poison control recommendations. We will continue to monitor LFTs. Initial acetaminophen level was 36 and is now 11.1. We will consult GI for further evaluation. Also, await psychiatric evaluation. Continue 1013 initiated in the ED. 10/21/2021. Continue Acetadote per poison control recommendations. LFTs are within normal limits. Acetaminophen level also within normal limits. GI consulted. Continue 1013 per psychiatry. History Interval history: No new issues overnight Hospitalist Physical - Constitutional Vitals: Temp Pulse Resp BP Pulse Ox 98.4 F 65 16 138/98 98 10/21/21 01:04 10/21/21 01:04 10/21/21 01:30 10/21/21 01:04 10/21/21 09:10 General appearance: Present: no acute distress, well-nourished - EENT Eyes: Present: PERRL, EOM intact ENT: hearing intact, clear oral mucosa, dentition normal - Neck Neck: Present: supple, normal ROM - Respiratory Respiratory effort: normal Respiratory: bilateral: CTA - Cardiovascular Rhythm: regular Heart Sounds: Present: S1 & S2. Absent: gallop, rub - Extremities Extremities: no ischemia, No edema, Full ROM - Abdominal General gastrointestinal: soft, non-tender, non-distended, normal bowel sounds - Integumentary Integumentary: Present: clear, warm, dry - Neurologic Neurologic: CNII-XII intact, moves all extremities Results - Labs CBC & Chem 7: 10/21/21 04:10 10/21/21 04:10 Labs: Laboratory Last Values WBC 4.3 K/mm3 (4.5-11.0) L 10/21/21 04:10 RBC 4.69 M/mm3 (3.65-5.03) 10/21/21 04:10 Hgb 13.2 gm/dl (11.8-15.2) 10/21/21 04:10 Hct 41.3 % (35.5-45.6) 10/21/21 04:10 MCV 88 fl (84-94) 10/21/21 04:10 MCH 28 pg (28-32) 10/21/21 04:10 MCHC 32 % (32-34) 10/21/21 04:10 RDW 17.1 % (13.2-15.2) H 10/21/21 04:10 Plt Count 199 K/mm3 (140-440) 10/21/21 04:10 Lymph % (Auto) 11.0 % (13.4-35.0) L 10/21/21 04:10 Brooke % (Auto) 9.6 % (0.0-7.3) H 10/21/21 04:10 Eos % (Auto) 0.8 % (0.0-4.3) 10/21/21 04:10 Baso % (Auto) 2.8 % (0.0-1.8) H 10/21/21 04:10 Lymph # (Auto) 0.5 K/mm3 (1.2-5.4) L 10/21/21 04:10 Brooke # (Auto) 0.4 K/mm3 (0.0-0.8) 10/21/21 04:10 Eos # (Auto) 0.0 K/mm3 (0.0-0.4) 10/21/21 04:10 Baso # (Auto) 0.1 K/mm3 (0.0-0.1) 10/21/21 04:10 Seg Neutrophils % 75.8 % (40.0-70.0) H 10/21/21 04:10 Seg Neutrophils # 3.3 K/mm3 (1.8-7.7) 10/21/21 04:10 PT 14.6 Sec. (12.2-14.9) 10/21/21 04:10 INR 1.03 (0.87-1.13) 10/21/21 04:10 APTT 26.0 Sec. (24.2-36.6) 10/19/21 23:54 Sodium 136 mmol/L (137-145) L 10/21/21 04:10 Potassium 4.1 mmol/L (3.6-5.0) 10/21/21 04:10 Chloride 99.4 mmol/L (98-107) 10/21/21 04:10 Carbon Dioxide 27 mmol/L (22-30) 10/21/21 04:10 Anion Gap 14 mmol/L 10/21/21 04:10 BUN 2 mg/dL (9-20) L 10/21/21 04:10 Creatinine 0.7 mg/dL (0.8-1.3) L 10/21/21 04:10 Estimated GFR > 60 ml/min 10/21/21 04:10 BUN/Creatinine Ratio 3 % 10/21/21 04:10 Glucose 93 mg/dL (75-100) 10/21/21 04:10 Calcium 9.3 mg/dL (8.4-10.2) 10/21/21 04:10 Magnesium 2.20 mg/dL (1.7-2.3) 10/19/21 23:54 Total Bilirubin 1.50 mg/dL (0.1-1.2) H 10/21/21 04:10 Total Bilirubin 1.50 mg/dL (0.1-1.2) H 10/21/21 04:10 Direct Bilirubin 0.4 mg/dL (0-0.2) H 10/21/21 04:10 Indirect Bilirubin 1.1 mg/dL 10/21/21 04:10 AST 31 units/L (5-40) 10/21/21 04:10 AST 31 units/L (5-40) 10/21/21 04:10 ALT 39 units/L (7-56) 10/21/21 04:10 ALT 40 units/L (7-56) 10/21/21 04:10 Alkaline Phosphatase 79 units/L (35-129) 10/21/21 04:10 Alkaline Phosphatase 81 units/L (35-129) 10/21/21 04:10 Total Creatine Kinase 125 units/L (55-170) 10/21/21 00:00 Total Protein 6.8 g/dL (6.3-8.2) 10/21/21 04:10 Total Protein 6.9 g/dL (6.3-8.2) 10/21/21 04:10 Albumin 3.9 g/dL (3.9-5) 10/21/21 04:10 Albumin 4.0 g/dL (3.9-5) 10/21/21 04:10 Albumin/Globulin Ratio 1.3 % 10/21/21 04:10 Albumin/Globulin Ratio 1.4 % 10/21/21 04:10 Urine Color Yellow (Yellow) 10/20/21 00:07 Urine Turbidity Clear (Clear) 10/20/21 00:07 Urine pH 7.0 (5.0-7.0) 10/20/21 00:07 Ur Specific Franklin 1.004 (1.003-1.030) 10/20/21 00:07 Urine Protein <15 mg/dl mg/dL (Negative) 10/20/21 00:07 Urine Glucose (UA) Neg mg/dL (Negative) 10/20/21 00:07 Urine Ketones Neg mg/dL (Negative) 10/20/21 00:07 Urine Blood Sm (Negative) 10/20/21 00:07 Urine Nitrite Neg (Negative) 10/20/21 00:07 Urine Bilirubin Neg (Negative) 10/20/21 00:07 Urine Urobilinogen 2.0 mg/dL (<2.0) 10/20/21 00:07 Ur Leukocyte Esterase Neg (Negative) 10/20/21 00:07 Urine WBC (Auto) 6.0 /HPF (0.0-6.0) 10/20/21 00:07 Urine RBC (Auto) 1.0 /HPF (0.0-6.0) 10/20/21 00:07 Salicylates < 0.3 mg/dL (2.8-20.0) L 10/19/21 23:54 Urine Opiates Screen Presumptive negative 10/19/21 23:58 Urine Methadone Screen Presumptive negative 10/19/21 23:58 Acetaminophen 5.0 ug/mL (10.0-30.0) L 10/21/21 04:10 Ur Barbiturates Screen Presumptive negative 10/19/21 23:58 Ur Phencyclidine Scrn Presumptive negative 10/19/21 23:58 Ur Amphetamines Screen Presumptive negative 10/19/21 23:58 U Benzodiazepines Scrn Presumptive negative 10/19/21 23:58 Urine Cocaine Screen Presumptive negative 10/19/21 23:58 U Marijuana (THC) Screen Presumptive negative 10/19/21 23:58 Drugs of Abuse Note Disclamer 10/19/21 23:58 Hector/IV: Voiding Method Toilet Active Medications - Current Medications Current Medications: Generic Name Dose Route Start Last Admin Trade Name Freq PRN Reason Stop Dose Admin Aripiprazole 5 mg 10/20/21 12:00 10/21/21 09:05 Aripiprazole 5 Mg Tab PO 5 mg QDAY SOSA Administration Heparin Sodium (Porcine) 5,000 unit 10/20/21 12:00 10/21/21 05:55 Heparin 5,000 Unit/1 Ml Vial SUB-Q 5,000 unit Q8HR SOSA Administration Acetylcysteine 8,000 mg/ 1,040 mls @ 65 mls/hr 10/21/21 05:00 10/21/21 05:47 Dextrose IV 10/21/21 20:59 65 mls/hr DIRECT SOSA Administration Ibuprofen 600 mg 10/20/21 11:30 Ibuprofen 600 Mg Tab PO Q6H PRN Pain, Mild (1-3) Melatonin 5 mg 10/20/21 22:00 Melatonin 5 Mg Tab PO QHS PRN Sleep Morphine Sulfate 1 mg 10/20/21 12:00 Morphine 2 Mg/1 Ml Inj IV Q4H PRN Pain, Moderate (4-6) Morphine Sulfate 2 mg 10/20/21 12:00 Morphine 2 Mg/1 Ml Inj IV Q4H PRN Pain , Severe (7-10) Ondansetron HCl 4 mg 10/20/21 11:30 Ondansetron 4 Mg/2 Ml Inj IV Q8H PRN Nausea And Vomiting Sertraline HCl 25 mg 10/20/21 12:00 10/21/21 09:06 Sertraline 25 Mg Tab PO 25 mg QDAY SOSA Administration Sodium Chloride 10 ml 10/20/21 12:00 10/21/21 09:06 Sodium Chloride 0.9% 10 Ml Flush Syringe IV 10 ml BID SOSA Administration Sodium Chloride 10 ml 10/20/21 12:00 Sodium Chloride 0.9% 10 Ml Flush Syringe IV PRN PRN LINE FLUSH
--- NOTE | 2021-10-21 11:54 | Progress Note ---
Subjective - Reason for Consult Consult date: 10/21/21 Reason for consult: suicidal attempt - Chief Complaint Chief complaint: The patient was seen this morning. He reports doing well. The patient is calm, alert and oriented x3 with constricted affect. He denies a being depressed and denies hallucinations. Will continue 1013 due recent suicidal attempt via OD. REVIEW OF SYSTEMS Constitutional: Negative for weight loss ENT: Negative for stridor Respiratory: Negative for cough or hemoptysis All other systems reviewed and are negative MENTAL STATUS EXAMINATION General Appearance and Behavior: Age appropriate, good hygiene, wearing appropriate clothes, fair eye contact, cooperative polite with questioning. Cooperation: Participating/engaged, guarded Psychomotor Behavior: unremarkable and within normal limits Mood: Depressed Affect and affective range: constricted Thought Process: Goal directed Thought Content: Reality oriented Speech: Normal volume, Regular rate and rhythm, Suicidal Ideation: Denies Homicidal Ideation: Denies Hallucinations: Denies Delusions: None Impulse Control: Impulsive Insight and Judgment: Limited insight and judgment, Memory: Normal, Attention: Normal, Orientation: Alert, oriented, Assessment and Plan (1) Major Depressive Disorder (2) Alcohol Dependence Treatment 1013 Zoloft 25mg po daily Abilify 5mg po daily Melatonin 5mg po qhs prn insomnia Sitter: Per primary Medical: Per primary Disposition: recommend acute inpatient psychiatric treatment. Will follow. Thanks Case staffed with Dr. Rangel Medications and Allergies Mental Status Exam - Vital signs Last Vital Signs Temp 98 F 10/21/21 11:38 Pulse 84 10/21/21 11:38 Resp 18 10/21/21 11:38 BP 123/90 10/21/21 11:38 Pulse Ox 98 10/21/21 11:38
--- NOTE | 2021-10-21 13:40 | Electrocardiograph Report ---
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
--- NOTE | 2021-10-21 15:02 | Gastroenterology Progress Note ---
Assessment and Plan 1. GI: acetaminophen toxicity without signs of acute liver failure - lft's normal - continue follow labs - no need further GI input, call if situation changes Subjective Date of service: 10/21/21 Interval history: - no GI complaints overnight Objective - Constitutional Vitals: Temp Pulse Resp BP Pulse Ox 98 F 84 18 123/90 98 10/21/21 11:38 10/21/21 11:38 10/21/21 11:38 10/21/21 11:38 10/21/21 11:38 General appearance: no acute distress - EENT Eyes: PERRL - Respiratory Respiratory: bilateral: CTA - Cardiovascular Rhythm: regular Heart Sounds: Present: S1 & S2 - Gastrointestinal General gastrointestinal: Present: soft, non-tender, non-distended - Labs CBC & Chem 7: 10/21/21 04:10 10/21/21 04:10 Labs: Laboratory Results - last 24 hr 10/21/21 10/21/21 10/21/21 00:00 00:00 04:10 WBC RBC Hgb Hct MCV MCH MCHC RDW Plt Count Lymph % (Auto) Gaines % (Auto) Eos % (Auto) Baso % (Auto) Lymph # (Auto) Gaines # (Auto) Eos # (Auto) Baso # (Auto) Seg Neutrophils % Seg Neutrophils # PT INR Sodium Potassium Chloride Carbon Dioxide Anion Gap BUN Creatinine Estimated GFR BUN/Creatinine Ratio Glucose Calcium Total Bilirubin 1.30 H 1.50 H Direct Bilirubin 0.4 H 0.4 H Indirect Bilirubin 0.9 1.1 AST 35 31 ALT 41 39 Alkaline Phosphatase 85 79 Total Creatine Kinase 125 Total Protein 6.8 6.8 Albumin 3.9 4.0 Albumin/Globulin Ratio 1.3 1.4 Acetaminophen Coronavirus (PCR) 10/21/21 10/21/21 10/21/21 04:10 04:10 04:10 WBC 4.3 L RBC 4.69 Hgb 13.2 Hct 41.3 MCV 88 MCH 28 MCHC 32 RDW 17.1 H Plt Count 199 Lymph % (Auto) 11.0 L Gaines % (Auto) 9.6 H Eos % (Auto) 0.8 Baso % (Auto) 2.8 H Lymph # (Auto) 0.5 L Gaines # (Auto) 0.4 Eos # (Auto) 0.0 Baso # (Auto) 0.1 Seg Neutrophils % 75.8 H Seg Neutrophils # 3.3 PT 14.6 INR 1.03 Sodium Potassium Chloride Carbon Dioxide Anion Gap BUN Creatinine Estimated GFR BUN/Creatinine Ratio Glucose Calcium Total Bilirubin Direct Bilirubin Indirect Bilirubin AST ALT Alkaline Phosphatase Total Creatine Kinase Total Protein Albumin Albumin/Globulin Ratio Acetaminophen 5.0 L Coronavirus (PCR) 10/21/21 10/21/21 04:10 Unknown WBC RBC Hgb Hct MCV MCH MCHC RDW Plt Count Lymph % (Auto) Gaines % (Auto) Eos % (Auto) Baso % (Auto) Lymph # (Auto) Gaines # (Auto) Eos # (Auto) Baso # (Auto) Seg Neutrophils % Seg Neutrophils # PT INR Sodium 136 L Potassium 4.1 Chloride 99.4 Carbon Dioxide 27 Anion Gap 14 BUN 2 L Creatinine 0.7 L Estimated GFR > 60 BUN/Creatinine Ratio 3 Glucose 93 Calcium 9.3 Total Bilirubin 1.50 H Direct Bilirubin Indirect Bilirubin AST 31 ALT 40 Alkaline Phosphatase 81 Total Creatine Kinase Total Protein 6.9 Albumin 3.9 Albumin/Globulin Ratio 1.3 Acetaminophen Coronavirus (PCR) Negative
[2021-10-22] MEDS: HEPARIN 5,000 UNIT/1 ML VIAL SUB-Q SCH (06:18)
[2021-10-22 09:26] VITALS: BP 119/90
[2021-10-22] MEDS: SERTRALINE 25 MG TAB PO SCH (09:28)
[2021-10-22] MEDS: ARIPiprazole 5 MG TAB PO SCH (09:28)
--- NOTE | 2021-10-22 10:22 | Progress Note ---
Assessment and Plan Assessment and plan: Tylenol overdose Suicide attempt. Major depressive disorder. 10/20/2021. Patient was started on Acetadote in the emergency department which we will continue per protocol and per GI/poison control recommendations. We will continue to monitor LFTs. Initial acetaminophen level was 36 and is now 11.1. We will consult GI for further evaluation. Also, await psychiatric evaluation. Continue 1013 initiated in the ED. 10/21/2021. Continue Acetadote per poison control recommendations. LFTs are within normal limits. Acetaminophen level also within normal limits. GI consulted. Continue 1013 per psychiatry. 10/22/2021. Patient with acetaminophen toxicity without signs of acute liver failure. LFTs are normal. Psychiatry recommends continuing 1013. Continue Zoloft, Abilify and melatonin. Await poison control clearance for discontinuation of Acetadote History Interval history: No new issues overnight Hospitalist Physical - Constitutional Vitals: Temp Pulse Resp BP Pulse Ox 98.2 F 95 H 18 119/90 98 10/22/21 09:13 10/22/21 09:14 10/22/21 09:13 10/22/21 09:13 10/22/21 09:14 General appearance: Present: no acute distress, well-nourished - EENT Eyes: Present: PERRL, EOM intact ENT: hearing intact, clear oral mucosa, dentition normal - Neck Neck: Present: supple, normal ROM - Respiratory Respiratory effort: normal Respiratory: bilateral: CTA - Cardiovascular Rhythm: regular Heart Sounds: Present: S1 & S2. Absent: gallop, rub - Extremities Extremities: no ischemia, No edema, Full ROM - Abdominal General gastrointestinal: soft, non-tender, non-distended, normal bowel sounds - Integumentary Integumentary: Present: clear, warm, dry - Neurologic Neurologic: CNII-XII intact, moves all extremities Results - Labs CBC & Chem 7: 10/21/21 04:10 10/21/21 04:10 Labs: Laboratory Last Values WBC 4.3 K/mm3 (4.5-11.0) L 10/21/21 04:10 RBC 4.69 M/mm3 (3.65-5.03) 10/21/21 04:10 Hgb 13.2 gm/dl (11.8-15.2) 10/21/21 04:10 Hct 41.3 % (35.5-45.6) 10/21/21 04:10 MCV 88 fl (84-94) 10/21/21 04:10 MCH 28 pg (28-32) 10/21/21 04:10 MCHC 32 % (32-34) 10/21/21 04:10 RDW 17.1 % (13.2-15.2) H 10/21/21 04:10 Plt Count 199 K/mm3 (140-440) 10/21/21 04:10 Lymph % (Auto) 11.0 % (13.4-35.0) L 10/21/21 04:10 [place] % (Auto) 9.6 % (0.0-7.3) H 10/21/21 04:10 Eos % (Auto) 0.8 % (0.0-4.3) 10/21/21 04:10 Baso % (Auto) 2.8 % (0.0-1.8) H 10/21/21 04:10 Lymph # (Auto) 0.5 K/mm3 (1.2-5.4) L 10/21/21 04:10 [place] # (Auto) 0.4 K/mm3 (0.0-0.8) 10/21/21 04:10 Eos # (Auto) 0.0 K/mm3 (0.0-0.4) 10/21/21 04:10 Baso # (Auto) 0.1 K/mm3 (0.0-0.1) 10/21/21 04:10 Seg Neutrophils % 75.8 % (40.0-70.0) H 10/21/21 04:10 Seg Neutrophils # 3.3 K/mm3 (1.8-7.7) 10/21/21 04:10 PT 14.6 Sec. (12.2-14.9) 10/21/21 04:10 INR 1.03 (0.87-1.13) 10/21/21 04:10 APTT 26.0 Sec. (24.2-36.6) 10/19/21 23:54 Sodium 136 mmol/L (137-145) L 10/21/21 04:10 Potassium 4.1 mmol/L (3.6-5.0) 10/21/21 04:10 Chloride 99.4 mmol/L (98-107) 10/21/21 04:10 Carbon Dioxide 27 mmol/L (22-30) 10/21/21 04:10 Anion Gap 14 mmol/L 10/21/21 04:10 BUN 2 mg/dL (9-20) L 10/21/21 04:10 Creatinine 0.7 mg/dL (0.8-1.3) L 10/21/21 04:10 Estimated GFR > 60 ml/min 10/21/21 04:10 BUN/Creatinine Ratio 3 % 10/21/21 04:10 Glucose 93 mg/dL (75-100) 10/21/21 04:10 Calcium 9.3 mg/dL (8.4-10.2) 10/21/21 04:10 Magnesium 2.20 mg/dL (1.7-2.3) 10/19/21 23:54 Total Bilirubin 1.50 mg/dL (0.1-1.2) H 10/21/21 04:10 Total Bilirubin 1.50 mg/dL (0.1-1.2) H 10/21/21 04:10 Direct Bilirubin 0.4 mg/dL (0-0.2) H 10/21/21 04:10 Indirect Bilirubin 1.1 mg/dL 10/21/21 04:10 AST 31 units/L (5-40) 10/21/21 04:10 AST 31 units/L (5-40) 10/21/21 04:10 ALT 39 units/L (7-56) 10/21/21 04:10 ALT 40 units/L (7-56) 10/21/21 04:10 Alkaline Phosphatase 79 units/L (35-129) 10/21/21 04:10 Alkaline Phosphatase 81 units/L (35-129) 10/21/21 04:10 Total Creatine Kinase 125 units/L (55-170) 10/21/21 00:00 Total Protein 6.8 g/dL (6.3-8.2) 10/21/21 04:10 Total Protein 6.9 g/dL (6.3-8.2) 10/21/21 04:10 Albumin 3.9 g/dL (3.9-5) 10/21/21 04:10 Albumin 4.0 g/dL (3.9-5) 10/21/21 04:10 Albumin/Globulin Ratio 1.3 % 10/21/21 04:10 Albumin/Globulin Ratio 1.4 % 10/21/21 04:10 Urine Color Yellow (Yellow) 10/20/21 00:07 Urine Turbidity Clear (Clear) 10/20/21 00:07 Urine pH 7.0 (5.0-7.0) 10/20/21 00:07 Ur Specific [place] 1.004 (1.003-1.030) 10/20/21 00:07 Urine Protein <15 mg/dl mg/dL (Negative) 10/20/21 00:07 Urine Glucose (UA) Neg mg/dL (Negative) 10/20/21 00:07 Urine Ketones Neg mg/dL (Negative) 10/20/21 00:07 Urine Blood Sm (Negative) 10/20/21 00:07 Urine Nitrite Neg (Negative) 10/20/21 00:07 Urine Bilirubin Neg (Negative) 10/20/21 00:07 Urine Urobilinogen 2.0 mg/dL (<2.0) 10/20/21 00:07 Ur Leukocyte Esterase Neg (Negative) 10/20/21 00:07 Urine WBC (Auto) 6.0 /HPF (0.0-6.0) 10/20/21 00:07 Urine RBC (Auto) 1.0 /HPF (0.0-6.0) 10/20/21 00:07 Salicylates < 0.3 mg/dL (2.8-20.0) L 10/19/21 23:54 Urine Opiates Screen Presumptive negative 10/19/21 23:58 Urine Methadone Screen Presumptive negative 10/19/21 23:58 Acetaminophen 5.0 ug/mL (10.0-30.0) L 10/21/21 04:10 Ur Barbiturates Screen Presumptive negative 10/19/21 23:58 Ur Phencyclidine Scrn Presumptive negative 10/19/21 23:58 Ur Amphetamines Screen Presumptive negative 10/19/21 23:58 U Benzodiazepines Scrn Presumptive negative 10/19/21 23:58 Urine Cocaine Screen Presumptive negative 10/19/21 23:58 U Marijuana (THC) Screen Presumptive negative 10/19/21 23:58 Drugs of Abuse Note Disclamer 10/19/21 23:58 Coronavirus (PCR) Negative (Negative) 10/21/21 Unknown Hector/IV: Voiding Method Toilet Active Medications - Current Medications Current Medications: Generic Name Dose Route Start Last Admin Trade Name Freq PRN Reason Stop Dose Admin Aripiprazole 5 mg 10/20/21 12:00 10/22/21 09:28 Aripiprazole 5 Mg Tab PO 5 mg QDAY SOSA Administration Heparin Sodium (Porcine) 5,000 unit 10/20/21 12:00 10/22/21 06:18 Heparin 5,000 Unit/1 Ml Vial SUB-Q Not Given Q8HR SOSA Ibuprofen 600 mg 10/20/21 11:30 Ibuprofen 600 Mg Tab PO Q6H PRN Pain, Mild (1-3) Melatonin 5 mg 10/20/21 22:00 Melatonin 5 Mg Tab PO QHS PRN Sleep Morphine Sulfate 1 mg 10/20/21 12:00 Morphine 2 Mg/1 Ml Inj IV Q4H PRN Pain, Moderate (4-6) Morphine Sulfate 2 mg 10/20/21 12:00 Morphine 2 Mg/1 Ml Inj IV Q4H PRN Pain , Severe (7-10) Ondansetron HCl 4 mg 10/20/21 11:30 Ondansetron 4 Mg/2 Ml Inj IV Q8H PRN Nausea And Vomiting Sertraline HCl 25 mg 10/20/21 12:00 10/22/21 09:28 Sertraline 25 Mg Tab PO 25 mg QDAY SOSA Administration Sodium Chloride 10 ml 10/20/21 12:00 10/22/21 09:28 Sodium Chloride 0.9% 10 Ml Flush Syringe IV 10 ml BID SOSA Administration Sodium Chloride 10 ml 10/20/21 12:00 Sodium Chloride 0.9% 10 Ml Flush Syringe IV PRN PRN LINE FLUSH
--- NOTE | 2021-10-22 11:42 | Progress Note ---
Subjective - Reason for Consult Consult date: 10/22/21 Reason for consult: mental health evaluation - Chief Complaint Chief complaint: The patient was seen this morning. He reports doing well. The patient presents with appropriate affect. The patient denies any current suicidal/homicidal ideation and denies hallucinations. REVIEW OF SYSTEMS Constitutional: Negative for weight loss ENT: Negative for stridor Respiratory: Negative for cough or hemoptysis All other systems reviewed and are negative MENTAL STATUS EXAMINATION General Appearance and Behavior: Age appropriate, good hygiene, wearing sheila ropriate clothes, fair eye contact, cooperative polite with questioning. Cooperation: Participating/engaged, guarded Psychomotor Behavior: unremarkable and within normal limits Mood: "ok" Affect and affective range: constricted Thought Process: Goal directed Thought Content: Reality oriented Speech: Normal volume, Regular rate and rhythm, Suicidal Ideation: Denies Homicidal Ideation: Denies Hallucinations: Denies Delusions: None Impulse Control: Normal Insight and Judgment: Limited insight and judgment, Memory: Normal, Attention: Normal, Orientation: Alert, oriented, Assessment and Plan (1) Major Depressive Disorder (2) Alcohol Dependence Treatment DC 1013 Continue Zoloft 25mg po daily Continue Abilify 5mg po daily continue Melatonin 5mg po qhs prn insomnia Sitter: Per primary Medical: Per primary Disposition: Do not recommend acute inpatient psychiatric treatment. [employer] will provide patient with outpatient psychiatric resources and safety plan. Will sign off. Thanks Case staffed with Dr. Rangel Medications and Allergies Mental Status Exam - Vital signs Last Vital Signs Temp 98.2 F 10/22/21 09:13 Pulse 95 H 10/22/21 09:14 Resp 18 10/22/21 09:13 BP 119/90 10/22/21 09:13 Pulse Ox 98 10/22/21 09:14
--- NOTE | 2021-10-22 12:15 | Discharge Summary ---
Providers - Providers Date of Admission: 10/20/21 07:39 Date of discharge: 10/22/21 Attending physician: MARCY BOWIE 10/20/21 09:03 psychiatry consult [Consult to Mental Health] [CONS] Stat Reason For Exam: si 10/20/21 11:01 Consult to Physician [CONS] Routine Comment: Consulting Provider: MARLON NOLASCO Physician Instructions: Reason For Exam: Tylenol overdose Primary care physician: GROUP DIRECTOR Hospitalization Reason for admission: Tylenol overdose Condition: Stable Hospital course: 26-year-old male with a history of MDD presented through the emergency department with chief complaint of possible Tylenol overdose. Per EMS, patient reportedly drank approximately 12,000 mg of Tylenol liquid form as well as alcohol last night [employer]. Patient reportedly had a suicide attempt in the past with cutting his wrists. Patient would not deny or confirm that he had a suicide attempt. Patient would also not give me any history of any prior suicidal attempts. On admission, patient was essentially uncooperative with the interview and had a flat affect. The patient was admitted with diagnosis below: Tylenol overdose Suicide attempt. Major depressive disorder. 10/20/2021. Patient was started on Acetadote in the emergency department which we will continue per protocol and per GI/poison control recommendations. We will continue to monitor LFTs. Initial acetaminophen level was 36 and is now 11.1. We will consult GI for further evaluation. Also, await psychiatric evaluation. Continue 1013 initiated in the ED. 10/21/2021. Continue Acetadote per poison control recommendations. LFTs are within normal limits. Acetaminophen level also within normal limits. GI consulted. Continue 1013 per psychiatry. 10/22/2021. Patient with acetaminophen toxicity without signs of acute liver failure. LFTs are normal. Psychiatry rescinded 1013. Continue Zoloft, Abilify and melatonin. Poison control discontinued Acetadote. Psychiatry recommended Zoloft 25 mg p.o. daily, Abilify 5 mg p.o. daily and melatonin 5 mg as needed for insomnia. [employer] will provide patient with outpatient psychiatric resources and safety plan. Dedicated discharge time 35 minutes Disposition: HOME / SELF CARE / HOMELESS Final Discharge Diagnosis (Prints w/discharge instructions): Tylenol overdose. Suicide attempt. Major depressive disorder. Core Measure Documentation - Palliative Care Palliative Care/ Comfort Measures: Not Applicable - Core Measures Any of the following diagnoses?: none Exam - Constitutional Vitals: Temp Pulse Resp BP Pulse Ox 98.2 F 95 H 18 119/90 98 10/22/21 09:13 10/22/21 09:14 10/22/21 09:13 10/22/21 09:13 10/22/21 09:14 General appearance: Present: no acute distress, well-nourished - EENT Eyes: Present: PERRL ENT: hearing intact, clear oral mucosa - Neck Neck: Present: supple, normal ROM - Respiratory Respiratory effort: normal Respiratory: bilateral: CTA - Cardiovascular Heart Sounds: Present: S1 & S2. Absent: rub, click - Extremities Extremities: pulses symmetrical, No edema Peripheral Pulses: within normal limits - Abdominal General gastrointestinal: Present: soft, non-tender, non-distended, normal bowel sounds Male genitourinary: Present: normal - Integumentary Integumentary: Present: clear, warm, dry - Musculoskeletal Musculoskeletal: gait normal, strength equal bilaterally - Psychiatric Psychiatric: appropriate mood/affect, intact judgment & insight - Neurologic Neurologic: CNII-XII intact, moves all extremities Plan Activity: advance as tolerated Weight Bearing Status: Weight Bear as Tolerated Diet: regular Additional Instructions: [employer] will provide patient with psychiatric outpatient resources and safety plan. Follow up with: PRIMARY CARE, [Primary Care Provider] - 3-5 Days Prescriptions: ARIPiprazole [Abilify TAB] 5 mg PO DAILY 30 Days #30 Melatonin [Melatonin 10MG TAB] 5 mg PO QHS 30 Days #15 Sertraline [Zoloft] 25 mg PO QDAY 30 Days #30 tab
== END 2021-10-22 14:30 | disposition home or self-care (01) | DRG 918 ==
LOC: ED 23:04 → 3A 10-20 07:39
PROVIDERS: ADMIT Hospitalist; ATTEND Hospitalist
DX: T39.1X2A Poisoning by 4-Aminophenol derivatives, intentional self-harm, initial encounter (principal); Z20.822 Contact with and (suspected) exposure to COVID-19; F32.9 Major depressive disorder, single episode, unspecified; Y92.89 Other specified places as the place of occurrence of the external cause; F10.20 Alcohol dependence, uncomplicated; Y90.9 Presence of alcohol in blood, level not specified
CPT/HCPCS: 36415; 80053; 80076; 80307; 80320; 81001; 82550; 82962; 83735; 85025; 85610; 85730; 90714; 93005; G0378; J3490; J7060; G0480; J0132; J0690; J1644; J2405; J7030; J7070; U0003